=== PATIENT | male | born 2000 | race Caucasian/White ===

== ENCOUNTER 2022-02-27 20:10 | Emergency (ER) | payer SELFPAY ==
[~2022-02-27] VITALS: Ht 165.1 cm; Wt 68.2 kg
[2022-02-27] MEDS ORDERED: LIDOCAINE 1% 10 ML VIAL SQ ONE (20:30)
[2022-02-27] MEDS ORDERED: LIDOCAINE 1% 20 ML VIAL SQ ONE (20:30)
[2022-02-27 20:32] LABS: BASOPHILS % (AUTO) 0.4 % (0.0-2.0); EOSINOPHILS % (AUTO) 1.2 % (1.0-6.0); HEMATOCRIT 44.5 % (41-53); LYMPHOCYTES # (AUTO) 3.4 K/uL (1.0-4.8); MEAN CORPUSCULAR HEMOGLOBIN 32.7 pg (26.0-34.0); MEAN CORPUSCULAR HGB CONC 33.6 G/dL (31.0-37.0); MEAN CORPUSCULAR VOLUME 97 fL (80-100); MONOCYTES # (AUTO) 1.1 K/uL (0.1-1.0); MONOCYTES % (AUTO) 9.6 % (2.0-9.0); NEUTROPHILS # (AUTO) 6.4 K/uL (1.8-7.7); NEUTROPHILS % (AUTO) 57.8 % (40.0-70.0); PLATELET COUNT (AUTO) 231 K/uL (150-450); RED BLOOD CELL COUNT(AUTO) 4.57 MIL/uL (4.50-5.90); RED CELL DISTRIBUTION WIDTH 12.8 % (11.5-14.5)
[2022-02-27 20:43] LABS: ANION GAP 9 mmol/L (8-16); CALCIUM, TOTAL 9.3 mg/dL (8.8-10.5); CARBON DIOXIDE 28 mmol/L (22-29); CHLORIDE 100 mmol/L (98-107); CREATININE 0.91 mg/dL (0.60-1.30); GLOMERULAR FILTR. RATE CALC > 60 mL/min (>60); GLUCOSE,RANDOM 110 mg/dL (70-110); POTASSIUM 4.3 mmol/L (3.5-5.1); SODIUM SERUM 137 mmol/L (136-145); UREA NITROGEN, BLOOD 13 mg/dL (7-18)
[2022-02-27 20:48] LABS: ALANINE AMINOTRANSFERASE 30 U/L (12-78); ALBUMIN 4.1 g/dL (3.4-5.0); ALKALINE PHOSPHATASE 69 U/L (46-116); ASPARTATE AMINOTRANSFERASE 27 U/L (15-37); BILIRUBIN,TOTAL 0.3 mg/dL (0.1-1.0); TOTAL PROTEIN, SERUM 7.4 g/dL (6.4-8.2)
[2022-02-27] MEDS ORDERED: BACITRACIN 28 GM OINTMENT TP ONE ×2 (21:00)
[2022-02-27] MEDS ORDERED: CeFAZolin 1 GM/DEXTROSE 50 ML IV ONE (21:45)
[2022-02-27 22:15] VITALS: BP 122/69
== END 2022-02-27 22:30 | disposition short-term general hospital (02) ==
LOC: EMS 20:10
DX: S21.212A Laceration without foreign body of left back wall of thorax without penetration into thoracic cavity, initial encounter (principal); F17.210 Nicotine dependence, cigarettes, uncomplicated; W45.8XXA Other foreign body or object entering through skin, initial encounter; X99.9XXA Assault by unspecified sharp object, initial encounter; Y93.89 Activity, other specified; Y92.89 Other specified places as the place of occurrence of the external cause; Y99.8 Other external cause status
CPT/HCPCS: 99285; 96365; 71250; 80053; 85025; 36415; 12002; J3490

== ENCOUNTER 2022-05-22 20:48 | Emergency (ER) | payer SELFPAY ==
[~2022-05-22] VITALS: Ht 165.1 cm; Wt 70.5 kg
[2022-05-22 21:01] VITALS: BP 122/73
== END 2022-05-22 22:37 | disposition left against medical advice (07) ==
LOC: EMS 20:49
DX: S01.112A Laceration without foreign body of left eyelid and periocular area, initial encounter (principal); Z53.21 Procedure and treatment not carried out due to patient leaving prior to being seen by health care provider

== ENCOUNTER 2023-11-30 00:03 | Emergency (ER) | payer SELFPAY ==
[~2023-11-30] VITALS: Ht 165.1 cm; Wt 72.7 kg
[2023-11-30 00:06] VITALS: TEMP 97.6
[2023-11-30 01:34] VITALS: BP 153/90; PULSE 95; RESP 16
== END 2023-11-30 02:40 | disposition home or self-care (01) ==
LOC: EMS 00:03
DX: Z04.1 Encounter for examination and observation following transport accident (principal)
CPT/HCPCS: 99283